=== PATIENT | male | born 1935 | race Caucasian/White ===

== ENCOUNTER 2020-10-09 15:57 | Emergency (ER) | payer MEDICARE, BC ==
[~2020-10-09] VITALS: Ht 177.8 cm; Wt 104.3 kg
[~2020-10-09 15:57] MED LIST: Z MICARDIS HCT PO; Z VERAPAMIL HCL PO; Z.0.ASPIRIN325 MG PO; Z.0.JANUVIA50 MG PO; Z.0.LANTUS100 UNIT/1 SC; Z.0.LASIX20 MG PO; Z.0.LIPITOR10 MG PO; Z.0.NOVOLOG100 UNIT/; Z.0.PLAVIX75 MG PO; Z.3.CENTRUM SILVER1; [UNRECOGNIZED DRUG - CODE] PO
[2020-10-09] MEDS ORDERED: HYDROCODONE/APAP 10MG-325MG TAB PO NR (17:15)
[2020-10-09 18:59] LABS: CREATINE KINASE MB 1.5 ng/mL (0-5.0)
[2020-10-10] MEDS ORDERED: LIDOCAINE 4% PATCH TP SCH (09:00)
== END 2020-10-09 19:30 | disposition home or self-care (01) ==
LOC: ER 16:31
DX: R07.89 Other chest pain (principal); W01.190A Fall on same level from slipping, tripping and stumbling with subsequent striking against furniture, initial encounter; Y93.01 Activity, walking, marching and hiking; Y92.008 Other place in unspecified non-institutional (private) residence as the place of occurrence of the external cause; I10 Essential (primary) hypertension; E11.9 Type 2 diabetes mellitus without complications; E78.5 Hyperlipidemia, unspecified; H35.30 Unspecified macular degeneration
CPT/HCPCS: 36415; 71111; 82550; 82553; 84484; 99282

== ENCOUNTER 2020-12-18 16:23 | Emergency (ER) | payer MEDICARE, BC ==
[~2020-12-18] VITALS: Ht 177.8 cm; Wt 97.1 kg
[2020-12-18] MEDS ORDERED: ENOXAPARIN SODIUM INJ 100 MG/ML SYR SC NR (19:01)
[2020-12-18] MEDS ORDERED: ENOXAPARIN SODIUM INJ 100 MG/ML SYR SC ONE (19:30)
[2020-12-18] MEDS ORDERED: IOPAMIDOL 370 MG/ML 200 ML INFUS..BTL INJ ONE (19:59)
[2020-12-18] MEDS ORDERED: SODIUM CHLORIDE 0.9% 50ML 50 ML ONE (19:59)
[2020-12-18 22:28] VITALS: BP 137/64
== END 2020-12-18 22:35 | disposition other institution (70) ==
LOC: FSED 16:46
DX: R09.02 Hypoxemia (principal); I82.412 Acute embolism and thrombosis of left femoral vein; I87.8 Other specified disorders of veins; I10 Essential (primary) hypertension; E11.65 Type 2 diabetes mellitus with hyperglycemia; Z20.822 Contact with and (suspected) exposure to COVID-19; E78.5 Hyperlipidemia, unspecified; H35.30 Unspecified macular degeneration
CPT/HCPCS: 71045; 71260; 80053; 81003; 82553; 84484; 85025; 93970; 96372; 99284; J1650; Q9967; U0002

== ENCOUNTER → 2022-02-20 | Outpatient (CLI) | payer MEDICARE, BC | LOC: CT 13:19 | PROVIDERS: ATTEND Internal Medicine Cardiovascular Disease | DX: I63.30 Cerebral infarction due to thrombosis of unspecified cerebral artery (principal) | CPT/HCPCS: 70450 ==

== ENCOUNTER → 2022-03-10 | Outpatient (CLI) | payer MEDICARE, BC | LOC: MRI 09:32 | PROVIDERS: ATTEND Internal Medicine Cardiovascular Disease | DX: I65.8 Occlusion and stenosis of other precerebral arteries (principal) | CPT/HCPCS: 70551 ==

== ENCOUNTER → 2022-07-02 | Outpatient (CLI) | payer MEDICARE, BC | LOC: CARD 13:47 | PROVIDERS: ATTEND Podiatrist | DX: E11.621 Type 2 diabetes mellitus with foot ulcer (principal); L97.511 Non-pressure chronic ulcer of other part of right foot limited to breakdown of skin; L03.115 Cellulitis of right lower limb | CPT/HCPCS: 93922; 93925 ==

== ENCOUNTER 2023-06-18 09:23 | Observation (INO) | payer MEDICARE, BC ==
[~2023-06-18] VITALS: Ht 182.9 cm; Wt 97.1 kg
[2023-06-18 09:54] LABS: BASOPHILS % 0.1 % (0.0-1.0); EOSINOPHILS % 0.1 % (0.0-6.0); HEMATOCRIT 32.2 % (38.2-49.6); HEMOGLOBIN 11.1 g/dL (14.0-18.0); LYMPHOCYTES # (AUTO) 1.4 (1.0-3.2); LYMPHOCYTES % 9.7 % (18.0-39.1); MEAN CORPUSCULAR HEMOGLOBIN 30.2 pg (28-32); MEAN CORPUSCULAR HGB CONC 34.5 g/dL (31-35); MEAN CORPUSCULAR VOLUME 87.5 fL (81-99); MONOCYTES # (AUTO) 1.3 (0.2-0.8); MONOCYTES % 9.1 % (4.4-11.3); NEUTROPHILS # (AUTO) 11.9 (2.1-6.9); NEUTROPHILS % 80.6 % (38.7-80.0); PLATELET COUNT 178 x10e3/uL (140-360); RED BLOOD COUNT 3.68 x10e6/uL (4.3-5.7); RED CELL DISTRIBUTION WIDTH 12.8 % (11.7-14.4); WHITE BLOOD COUNT 14.73 x10e3/uL (4.8-10.8)
[2023-06-18 10:13] LABS: ALBUMIN 3.4 g/dL (3.5-5.0); ALBUMIN/GLOBULIN RATIO 0.9 (0.8-2.0); ANION GAP 12.2 mmol/L (8-16); CREATININE, SERUM 1.84 mg/dL (0.72-1.25); POTASSIUM 4.2 mmol/L (3.5-5.1)
[2023-06-18 10:22] LABS: INR 1.08; PARTIAL THROMBOPLASTIN TIME 31.1 seconds (23.8-35.5); PROTHROMBIN TIME 14.7 seconds (11.9-14.5)
[2023-06-18] MEDS ORDERED: KETOROLAC TROMETHAMINE 30 MG/ML VIAL IV STA (11:56)
[2023-06-18] MEDS ORDERED: SODIUM CHLORIDE 0.9% 500ML 500 ML IV STA (11:59)
[2023-06-18] MEDS: Doxycycline IV 100 MG in SODIUM CHLORIDE 0.9% 100 ML IV SCH ×2 (12:13→22:01)
[2023-06-18 13:02] VITALS: BP 130/50; PULSE 56; RESP 17; TEMP 97.7; O2SAT 99
[2023-06-18 14:15] VITALS: PULSE 58; RESP 18; O2SAT 97
[2023-06-18] MEDS ORDERED: FUROSEMIDE40 MG PO (14:53)
[2023-06-18] MEDS ORDERED: SPIRONOLACTONE25 MG PO (14:53)
[2023-06-18] MEDS ORDERED: SOTALOL80 MG PO (14:53)
[2023-06-18] MEDS ORDERED: LASIX10 MG/ML PO (14:53)
[2023-06-18] MEDS ORDERED: VALSARTAN-HCTZ1 EACH PO (14:53)
[2023-06-18] MEDS ORDERED: ATORVASTATIN CA20 MG PO (14:53)
[2023-06-18] MEDS ORDERED: HUMALOG100 UNIT/3 SQ (14:53)
[2023-06-18] MEDS ORDERED: CLOPIDOGREL75 MG PO (14:53)
[2023-06-18] MEDS ORDERED: ASPIRIN EC81 MG PO (14:53)
[2023-06-18 15:13] VITALS: BP 130/50; PULSE 56; RESP 17; TEMP 97.7; O2SAT 99
[2023-06-18 15:22] VITALS: BP 130/50; PULSE 56; RESP 17; TEMP 97.7; O2SAT 99
[2023-06-18 16:04] VITALS: BP 136/51; PULSE 58; RESP 19; TEMP 97.9; O2SAT 98
[2023-06-18] MEDS ORDERED: ACETAMINOPHEN 325 MG TAB PO PRN (18:00)
[2023-06-18] MEDS ORDERED: ONDANSETRON HCL INJ 2MG/ML 2ML 2 MG/ML VIAL IV PRN (18:00)
[2023-06-18] MEDS: SODIUM CHLORIDE 0.9% 1000ML 1,000 ML IV SCH (18:58)
[2023-06-18] MEDS ORDERED: DEXTROSE 50% SYRINGE 50 ML IV PRN (19:00)
[2023-06-18 19:36] VITALS: PULSE 60; RESP 18; O2SAT 98
[2023-06-18] MEDS ORDERED: ATORVASTATIN 20 MG TAB PO SCH (21:00)
[2023-06-18] MEDS: INSULIN LISPRO 100 UNIT/1 ML 3ML VIAL SQ SCH (21:00)
[2023-06-18] MEDS ORDERED: INSULIN GLARGINE 100 UNITS/ML VIAL SQ SCH (21:00)
[2023-06-18] MEDS: FLUTICASONE PROPIONATE NASAL SPRAY NS SCH (22:11)
[2023-06-18] MEDS: AZELASTINE HCL 137 MCG NASAL SPRAY NS SCH (22:12)
[2023-06-19 04:03] VITALS: BP 136/51; PULSE 60; RESP 18; TEMP 97.9; O2SAT 98
[2023-06-19 04:20] VITALS: BP 150/65; PULSE 88; RESP 18; TEMP 99; O2SAT 95
[2023-06-19] MEDS: SODIUM CHLORIDE 0.9% 1000ML 1,000 ML IV SCH (04:56)
[2023-06-19 05:21] LABS: BASOPHILS % 0.2 % (0.0-1.0); EOSINOPHILS % 0.1 % (0.0-6.0); HEMATOCRIT 31.1 % (38.2-49.6); HEMOGLOBIN 10.4 g/dL (14.0-18.0); LYMPHOCYTES # (AUTO) 1.7 (1.0-3.2); MEAN CORPUSCULAR HEMOGLOBIN 30.4 pg (28-32); MEAN CORPUSCULAR HGB CONC 33.4 g/dL (31-35); MEAN CORPUSCULAR VOLUME 90.9 fL (81-99); MONOCYTES # (AUTO) 1.3 (0.2-0.8); MONOCYTES % 12.1 % (4.4-11.3); NEUTROPHILS % 72.2 % (38.7-80.0); PLATELET COUNT 164 x10e3/uL (140-360); RED BLOOD COUNT 3.42 x10e6/uL (4.3-5.7); WHITE BLOOD COUNT 11.12 x10e3/uL (4.8-10.8)
[2023-06-19 05:39] LABS: CALCIUM 8.4 mg/dL (8.4-10.2); CREATININE, SERUM 1.63 mg/dL (0.72-1.25)
[2023-06-19 06:27] LABS: FERRITIN 160.98 ng/mL (21.81-274.66); THYROID STIMULATING HORMONE 0.761 uIU/mL (0.350-4.940)
[2023-06-19 08:25] VITALS: BP 137/56; PULSE 71; RESP 19; TEMP 98.4; O2SAT 98
[2023-06-19] MEDS ORDERED: SPIRONOLACTONE 25 MG TAB PO SCH (09:00)
[2023-06-19] MEDS ORDERED: CLOPIDOGREL BISULFATE 75 MG TAB PO SCH (09:00)
[2023-06-19] MEDS ORDERED: ASPIRIN 81 MG ENTERIC COATED PO SCH (09:00)
[2023-06-19] MEDS ORDERED: SOTALOL HCL 80 MG TAB PO SCH (09:00)
[2023-06-19 09:28] VITALS: BP 137/56; PULSE 71; RESP 19; TEMP 98.4; O2SAT 98
[2023-06-19] MEDS: FLUTICASONE PROPIONATE NASAL SPRAY NS SCH (09:53)
[2023-06-19] MEDS: INSULIN LISPRO 100 UNIT/1 ML 3ML VIAL SQ SCH ×2 (10:02→12:16)
[2023-06-19] MEDS: AZELASTINE HCL 137 MCG NASAL SPRAY NS SCH (10:06)
[2023-06-19] MEDS: Doxycycline IV 100 MG in SODIUM CHLORIDE 0.9% 100 ML IV SCH (11:52)
[2023-06-19 13:49] VITALS: BP 149/61; PULSE 67; RESP 18; TEMP 97.7; O2SAT 100
[2023-06-19] MEDS ORDERED: ONDANSETRON HCL 4 MG ORAL DISINTEGRATING TAB PO PRN (14:30)
[2023-06-19] MEDS ORDERED: CEFDINIR300 MG PO (16:41)
[2023-06-19] MEDS ORDERED: ZITHROMAX250 MG PO (16:41)
[2023-06-19 16:46] VITALS: BP 135/61; PULSE 66; RESP 20; TEMP 98.3; O2SAT 94
[2023-06-19] MEDS ORDERED: DOXYCYCLINE HYCLATE TABLET 100 MG TAB PO SCH (21:00)
[2023-06-20] MEDS ORDERED: FERROUS SULFATE 325 MG TAB PO SCH (09:00)
[2023-06-20] MEDS ORDERED: CYANOCOBALAMIN 1,000 MCG TAB PO SCH (09:00)
== END 2023-06-19 17:55 | disposition home health service (06) ==
LOC: ER 09:30 → ERHOLD 11:34 → MED/SURG3 12:24
PROVIDERS: ADMIT Internal Medicine; ATTEND Internal Medicine
DX: J18.9 Pneumonia, unspecified organism (principal); N17.9 Acute kidney failure, unspecified; D64.9 Anemia, unspecified; I11.9 Hypertensive heart disease without heart failure; E78.5 Hyperlipidemia, unspecified; I25.10 Atherosclerotic heart disease of native coronary artery without angina pectoris; E11.59 Type 2 diabetes mellitus with other circulatory complications; Z79.4 Long term (current) use of insulin; R53.81 Other malaise; H35.30 Unspecified macular degeneration; Z11.52 Encounter for screening for COVID-19; Z79.899 Other long term (current) drug therapy; Z79.02 Long term (current) use of antithrombotics/antiplatelets; Z79.82 Long term (current) use of aspirin
CPT/HCPCS: 36415 ×2; 70450; 71045; 80048; 80053; 82550; 82607; 82728; 82948 ×2; 83036; 83540; 83880; 84443; 84466; 84484; 85025 ×2; 85610; 85730; 87040; 87400; 93005; 94799; 97110; 97116; 97161; 99284; G0378 ×2; J0696 ×2; J1815; J1885; J7030 ×2; J7040; J7050 ×2; U0002